=== PATIENT | female | born 1995 | race Caucasian/White ===

== ENCOUNTER 2021-11-22 09:42 | Emergency (ER) | payer MEDICAID, OTHER ==
[~2021-11-22] VITALS: Ht 154.9 cm; Wt 90.9 kg
[2021-11-22 09:48] VITALS: BP 127/75
[2021-11-22] MEDS ORDERED: NEOM10DR45 LEFT EAR (10:15)
[2021-11-23] MEDS ORDERED: FLUC150T66 PO (17:52)
== END 2021-11-22 10:35 | disposition home or self-care (01) ==
LOC: ER 09:42
DX: H60.92 Unspecified otitis externa, left ear (principal); H66.92 Otitis media, unspecified, left ear; Z98.890 Other specified postprocedural states; Z72.89 Other problems related to lifestyle; Z79.899 Other long term (current) drug therapy
CPT/HCPCS: 99283

== ENCOUNTER 2021-11-23 13:08 | Emergency (ER) | payer MEDICAID ==
[~2021-11-23] VITALS: Ht 154.9 cm; Wt 90.9 kg
[~2021-11-23 13:08] MED LIST: NEOM10DR45 LEFT EAR
[2021-11-23 13:30] VITALS: BP 142/91
[2021-11-23] MEDS ORDERED: FLUC150T66 PO (17:52)
[2021-11-23] MEDS ORDERED: fluconazole 150mg tablet PO ONE (18:00)
== END 2021-11-23 18:13 | disposition home or self-care (01) ==
LOC: ER 13:08
DX: H60.91 Unspecified otitis externa, right ear (principal); R68.84 Jaw pain; Z72.89 Other problems related to lifestyle; Z79.899 Other long term (current) drug therapy; Z79.2 Long term (current) use of antibiotics
CPT/HCPCS: 99283